=== PATIENT | female | born 1995 | race African-American/Black ===

== ENCOUNTER 2018-12-19 18:28 | Emergency (ER) | payer SELFPAY ==
[2018-12-19 18:56] LABS: Pregnancy Test - Urine (BHCG) Negative (Negative); Pregu Control Background? CLEAR/WHITE (CLR/WHITE); Pregu Control Bar Appear? YES (CONTROL BAR); Specific Gravity 1.024 (1.002-1.036)
[2018-12-19] MEDS ORDERED: Ketorolac Tromethamine 30 MG/ML VIAL ONE (19:08)
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
== END 2018-12-19 19:59 | disposition home or self-care (01) ==
LOC: ERS 18:28
DX: R07.81 Pleurodynia (principal); J34.89 Other specified disorders of nose and nasal sinuses; F17.210 Nicotine dependence, cigarettes, uncomplicated
CPT/HCPCS: 70160; 81025; 96372; J1885

== ENCOUNTER 2018-12-24 20:57 | Emergency (ER) | payer SELFPAY | END 2018-12-24 22:10 | disposition home or self-care (01) | LOC: ERS 20:57 | DX: L03.317 Cellulitis of buttock (principal); F17.210 Nicotine dependence, cigarettes, uncomplicated | CPT/HCPCS: 99283 ==

== ENCOUNTER 2018-12-29 22:18 | Emergency (ER) | payer SELFPAY ==
[2018-12-29] MEDS ORDERED: Lidocaine 1% w/Epinephrine 1:100K 20 ML VIAL ONE (23:35)
[2018-12-30] MEDS ORDERED: Acetaminophen 500 MG TAB ONE (00:47)
== END 2018-12-30 01:30 | disposition home or self-care (01) ==
LOC: ERS 22:18
DX: L05.91 Pilonidal cyst without abscess (principal); I10 Essential (primary) hypertension; F17.210 Nicotine dependence, cigarettes, uncomplicated
CPT/HCPCS: 56405; J2001

== ENCOUNTER 2021-08-16 22:19 | Emergency (ER) | payer SELFPAY ==
[2021-08-16] MEDS ORDERED: Xylocaine 1% w/ Epi 1:100K 10 ML VIAL ONE ×2 (22:42→23:00)
== END 2021-08-16 23:34 | disposition home or self-care (01) ==
LOC: ERS 22:19
DX: L05.01 Pilonidal cyst with abscess (principal); I10 Essential (primary) hypertension; F17.210 Nicotine dependence, cigarettes, uncomplicated
CPT/HCPCS: 10080